=== PATIENT | male | born 1970 | race Caucasian/White ===

== ENCOUNTER 2024-11-08 08:42 | Emergency (ER) | payer OTHER, SELFPAY ==
[2024-11-08 08:43] VITALS: BP 140/100
[2024-11-08 09:11] LABS: COVID-19 Antigen Negative (Negative)
--- NOTE | 2024-11-08 09:29 | ED.GENMED ---
History of Present Illness
General
Chief Complaint: Cold/Flu/URI Symptoms
Source: patient
Exam Limitations: none
Time Seen by Provider: 11/08/24 09:00
Nursing documentation reviewed up to this point in time: agreed with
History of Present Illness
History of Present Illness:
The patient is a 53-year-old man who reports about 48 hours of fatigue, intermittent nausea, decreased appetite, and cough. Patient reports he is here because he just feels uncomfortable. He reports low-grade fever. He denies sick contacts,
headache and rash. He denies sore throat.
Past History
Past History
ED Past Medical History: None
ED Past Surgical History: Other
Social History
Tobacco: Non-smoker
Alcohol: Other
Drug: None
Personal: Other
Living: other
Employment: Employed
Family History
Family History: Other
Review of Systems
Review of Systems
Allergies reviewed?: Yes
All Other Systems: ROS reviewed and negative except as documented in HPI and ROS
Constitutional: Reports fever, fatigue and chills
EENT: Reports no symptoms
Respiratory: Reports cough
Cardiac: Reports no symptoms
ABD/GI: Reports nausea and anorexia
: Reports no symptoms
Musculoskeletal: Reports muscle stiffness
Skin: Reports no symptoms
Neurological: Reports no symptoms
Endocrine: Reports no symptoms
Hematologic/Lymphatic: Reports no symptoms
Psychiatric: Reports no symptoms
Phy Exam
Physical Exam
Physical Exam:
Physical Exam
General: no apparent distress, not acutely ill. Nontoxic, conversational
Neck: supple. no meningeal signs. normal psoterior pharynx
Heart: s1/s2 regular rate and rhythm, no murmur. equal radial pulses.
Lungs: no acute respiratory distress. clear bilaterally. No crackles or wheezing
Abdomen: normal bowel sounds. not tender. no CVAT
Neuro: alert and oriented. no focal neurological deficits
Skin: no rash
Psychiatric: well kept. interactive and cooperative
Extremities: no edema. no calf tenderness. negative homans. good distal pulses
Course
Orders/Labs/Results
Orders:
Orders
11/08/24 08:46
COVID-19 Antigen Urgent
Source: Nasal Swab
Influenza A+B Rapid Molecular Urgent
JOLEEN Source: Nasal Swab
Specimen Description:
11/08/24 09:28
Acetaminophen [Tylenol] 1,000 mg PO NOW STA
11/08/24 09:29
Oseltamivir Phosphate [Tamiflu] 75 mg PO NOW STA
11/08/24 09:39
Case Management Consult ONCE
Case Management Consult: Other
Requested By:: NURSING
Comment: Pt. is homeless and would like help with a skilled nursing or placement.
Vital Signs
Initial and Last Documented VS:
Initial Vital Signs
Temp Pulse Resp BP Pulse Ox
99 F 91 16 140/100 97
11/08/24 08:43 11/08/24 08:43 11/08/24 08:43 11/08/24 08:43 11/08/24 08:43
Last Documented Vital Signs
Temp Pulse Resp BP Pulse Ox
99 F 91 16 140/100 97
11/08/24 08:43 11/08/24 08:43 11/08/24 08:43 11/08/24 08:43 11/08/24 08:43
MDM/Problems Addressed
Differential Diagnosis Includes:
Acute viral illness such as influenza or COVID, pneumonia, acute dehydration
MDM/Problems Addressed:
Patient presents with acute fatigue and cough
Acute Exacerbation and/or Progression of Chronic Illness:
Patient is acutely hypertensive, likely due to not feeling well
Acute Exacerbation and/or Progression of Chronic Illness: HTN
*Pulse Oximetry
Patient hypoxic: no
*EKG
Interpreted by ED Provider?: NA
*Tile Molder Hand Interpretation
Rate: Tile Molder Hand- N/A
*Critical Care Note
Total Time (30-74mins, 75-104mins- exclusive of procedures): Not Applicable
Data Reviewed
Source: patient
Patient Management
Social determinants of health affecting care: Living situation
Escalation/DeEscalation of care consider admission/obs:
Patient appears nontoxic and well. He reports he has been able to drink fluids without difficulty. He has no sign of respiratory distress
ED Attending Note
-
Portions of this chart may have been created with voice recognition software.� Occasional wrong word or��sound alike� substitutions may have occurred due to the inherent limitations of voice recognition software.
Discharge Plan
Departure
Patient Disposition: Home (Routine Discharge)
Date of Disposition: 11/08/24
Time of Disposition: 09:26
Patient with high blood pressure during this ER visit?: Yes
Condition: Good
Covid-19: Negative COVID-19
Discharge Problem:
Influenza A
Instructions: Flu in adults - ED discharge instructions, BLOOD PRESSURE
Prescriptions:
New
ondansetron 4 mg tablet,disintegrating
4 mg PO TID PRN (Reason: nausea and vomiting) Qty: 14 0RF
oseltamivir [Tamiflu] 75 mg capsule
75 mg PO BID Qty: 9 0RF
Activity Restrictions/Additional Instructions:
Make sure to drink lots of fluids to keep yourself hydrated. Take 1000 mg of acetaminophen every 4-6 hours for fever/pain. In addition to the acetaminophen, you can also take 600 mg of Advil every 6-8 hours for fever/pain.
The second dose of Tamiflu is due this evening at bedtime (around 9:00 tonight)
Use the Zofran only as needed for nausea
Interventions
Interventions:
*Risk Screen - Suicide Last Done: 11/08/24 08:47
*General Assessment Last Done: 11/08/24 09:41
*Neglect/Abuse Screening Last Done: 11/08/24 08:47
ED- Fall Risk Assessment Last Done: 11/08/24 09:41
*ED COVID-19 Vaccine History Last Done: 11/08/24 09:56
*Nursing Disposition Last Done: 11/08/24 09:56
ED- Pulmonary Assessment Last Done: 11/08/24 09:41
Discharge Date and Time
Discharge Date/Time: 11/08/24 09:57
Print Language: BAHAMIAN
[2024-11-08] MEDS: TYLENOL 1000 MG PO (09:35)
[2024-11-08] MEDS: TAMIFLU 75 MG PO (09:36)
--- NOTE | 2024-11-08 09:51 | CM ---
CM reviewed medical records. CM met with patient in room. Patient confirmed that he has been homeless and staying in his car for two weeks. Patient provided written information on the [facility] and also provided phone numbers for [facility]. [facility], and [facility].
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
--- NOTE | 2024-11-08 10:05 | PTCARENOTE ---
PT. did decide to take food bags. Food bags signed out.
== END 2024-11-08 09:57 | disposition home or self-care (01) ==
LOC: EMR 08:42
PROVIDERS: Emergency Medicine; EMERGENCY PHYSICIAN Emergency Medicine; FAMILY PHYSICIAN Nurse Practitioner Adult Health
DX: J10.1 Influenza due to other identified influenza virus with other respiratory manifestations (principal); R03.0 Elevated blood-pressure reading, without diagnosis of hypertension; Z11.52 Encounter for screening for COVID-19
CPT/HCPCS: 99283; 87502; 87811